=== PATIENT | male | born 1985 | race Caucasian/White ===

== ENCOUNTER 2017-01-01 19:39 | Emergency (ER) | payer SELFPAY ==
[~2017-01-01] VITALS: Ht 177.8 cm; Wt 69.4 kg
[2017-01-01 19:42] VITALS: BP 146/77
== END 2017-01-01 20:22 | disposition home or self-care (01) ==
LOC: ED 20:16
DX: L02.415 Cutaneous abscess of right lower limb (principal); L03.115 Cellulitis of right lower limb
CPT/HCPCS: 99283

== ENCOUNTER 2018-08-29 17:57 | Emergency (ER) | payer MEDICARE ==
[~2018-08-29] VITALS: Ht 177.8 cm; Wt 68.0 kg
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
[2018-08-29] MEDS ORDERED: IBUPROFEN 200 MG TABLET ONE (18:27)
[2018-08-29] MEDS ORDERED: IBUPROFEN 200 MG TABLET PO ONE (18:30)
[2018-08-29 20:05] VITALS: BP 120/67
== END 2018-08-29 20:33 | disposition home or self-care (01) ==
LOC: ED 20:05
DX: T69.022A Immersion foot, left foot, initial encounter (principal); T69.021A Immersion foot, right foot, initial encounter; F17.200 Nicotine dependence, unspecified, uncomplicated; Z59.0 Homelessness; X31.XXXA Exposure to excessive natural cold, initial encounter; Y93.89 Activity, other specified; Y92.89 Other specified places as the place of occurrence of the external cause; Y99.8 Other external cause status
CPT/HCPCS: 93970; 99284